=== PATIENT | female | born 1945 | race Caucasian/White ===

== ENCOUNTER 2017-09-27 08:15 | Day surgery (SDC) | payer OTHER ==
[~2017-09-27 08:15] MED LIST: ASA81 MG PO; CHLORDIAZEPOXI1 EACH PO; FIORICET 50-301 EACH PO; HUMALOG100 UNIT/1; HUMULIN N100 UNIT/2; HYDRALAZINE HCL50 MG PO; Intestinex CAP PO; LIPITOR20 MG PO; LOSARTAN POTASS50 MG PO; PROTONIX40 MG PO; TOPROL XL50 M1 PO; XOPENEX0.63 MG/3 IH; ZOLPIDEM TARTRA10 MG PO
== END 2017-09-27 19:09 | disposition home or self-care (01) ==
LOC: CIR.AMB 08:15
DX: M47.892 Other spondylosis, cervical region (principal)

== ENCOUNTER 2018-08-20 01:40 | Emergency (ER) | payer OTHER ==
[~2018-08-20] VITALS: Ht 160 cm; Wt 69.4 kg
== END 2018-08-20 15:32 | disposition home or self-care (01) ==
LOC: ER 01:40 → CPU-OBS 01:46 → ER 15:32
DX: R07.89 Other chest pain (principal); R10.13 Epigastric pain; E11.65 Type 2 diabetes mellitus with hyperglycemia; E86.0 Dehydration; T38.0X5A Adverse effect of glucocorticoids and synthetic analogues, initial encounter; Z79.4 Long term (current) use of insulin; Y92.89 Other specified places as the place of occurrence of the external cause

== ENCOUNTER 2019-01-09 11:02 | Outpatient (CLI) | payer OTHER | END 2019-01-09 11:21 | disposition home or self-care (01) | LOC: NUCLEAR 11:02 | DX: I87.2 Venous insufficiency (chronic) (peripheral) (principal) ==

== ENCOUNTER 2020-05-20 17:38 | Emergency (ER) | payer OTHER ==
[~2020-05-20] VITALS: Ht 160 cm; Wt 72.6 kg
[2020-05-20] MEDS ORDERED: PEPCID AC20 MG PO (22:02)
[2020-05-20] MEDS ORDERED: ALBUTEROL2.5 MG/3 M IH (22:02)
[2020-05-20] MEDS ORDERED: ZITHROMAX500 MG PO (22:02)
[2020-05-20] MEDS ORDERED: TUSNEL LIQUID178 ML PO (22:02)
[2020-05-20] MEDS ORDERED: DOLOGEN CAPLET1 EACH PO (22:03)
[2020-05-20] MEDS ORDERED: ZOFRAN8 MG PO (22:03)
== END 2020-05-20 22:34 | disposition home or self-care (01) ==
LOC: ER 17:38
DX: U07.1 COVID-19 (principal)

== ENCOUNTER 2020-05-25 19:11 | Inpatient (IN) | payer OTHER ==
[~2020-05-25] VITALS: Ht 167.6 cm; Wt 81.6 kg
[~2020-05-25 19:11] MED LIST changes: +ALBUTEROL2.5 MG/3 M IH; +DOLOGEN CAPLET1 EACH PO; +PEPCID AC20 MG PO; +TUSNEL LIQUID178 ML PO; +ZITHROMAX500 MG PO; +ZOFRAN8 MG PO
--- NOTE | 2020-05-25 20:11 | NUR ---
FAMILAIR REFIERE QUE COMENZO A DESORIENTAL DESDE LAS 3 PM PTE PADESE DE ALZAIMER Y TIENE COVID POSITIVO.
--- NOTE | 2020-05-25 23:49 | NUR ---
PACIENTE FEMENINA DE 75 AN[address].ESTA SE ENCUENTRA DESATURANDO. ORDEN.ENTUBARLA PACIENTE ES ENTUBADA POR MIS SUREZ.APCIENTE SE CONECTA A MONITOR CARDIACO Y A VENTILADOR MECANICO.PACIENTE LETARGICA SE MANTIENE BAJO OBSERVACION POR CAMBIOS SIGNIFICATIVOS.
== END 2020-06-10 10:58 | disposition expired | DRG 207 ==
LOC: ER 19:11 → ICU-2 05-26 00:31
PROVIDERS: ADMIT Internal Medicine; ATTEND Internal Medicine
PROC: 0BH17EZ Insertion of Endotracheal Airway into Trachea, Via Natural or Artificial Opening (ICD-10-PCS; principal; 2020-05-26)
PROC: 5A1955Z Respiratory Ventilation, Greater than 96 Consecutive Hours (ICD-10-PCS; 2020-05-26)
PROC: 8E0ZXY6 Isolation (ICD-10-PCS; 2020-05-26)
PROC: 4A033R1 Measurement of Arterial Saturation, Peripheral, Percutaneous Approach (ICD-10-PCS; 2020-05-26)
PROC: 02HV33Z Insertion of Infusion Device into Superior Vena Cava, Percutaneous Approach (ICD-10-PCS; 2020-05-31)
DX: U07.1 COVID-19 (principal); J12.89 Other viral pneumonia; J96.01 Acute respiratory failure with hypoxia; I21.4 Non-ST elevation (NSTEMI) myocardial infarction; N39.0 Urinary tract infection, site not specified; N17.8 Other acute kidney failure; E11.52 Type 2 diabetes mellitus with diabetic peripheral angiopathy with gangrene; I96 Gangrene, not elsewhere classified; E87.2 Acidosis; I10 Essential (primary) hypertension; F41.8 Other specified anxiety disorders; E11.65 Type 2 diabetes mellitus with hyperglycemia; Z79.4 Long term (current) use of insulin; B95.2 Enterococcus as the cause of diseases classified elsewhere; I48.91 Unspecified atrial fibrillation